=== PATIENT | female | born 1985 | race Two or more races ===

== ENCOUNTER 2025-06-24 13:01 | Emergency (ER) | payer OTHER ==
[~2025-06-24] VITALS: Ht 162.6 cm; Wt 72.9 kg
--- NOTE | 2025-06-24 13:17 | ED.PDOC ---
History of Present Illness HPI Comments 40-year-old female with no reported PMHx presents with a chief complaint of SOB, palpitations x 3 weeks with associated . Patient states that roughly 3 weeks ago she was noticing that she was becoming increasingly SOB and had gone to be medically evaluated. Patient mentions that her D-Dimer was evaluated and she underwent 2 CT scans with contrast, but the results were inconclusive. Denies any chest pain with this. No asymmetric leg swelling. No lower extremity edema. Pt does admit feeling somewhat anxious about her symptoms. Chief Complaint: Shortness of Breath Time Seen by MD: 13:15 Reviewed Notes: Medications, Allergies Allergies: Coded Allergies: NO KNOWN ALLERGIES (Unverified , 06/24/25) Information Source: Patient Mode of Arrival: Ambulatory Severity: Moderate Timing: Weeks Duration: Since onset Prehospital treatment: None Past Medical History PAST MEDICAL HISTORY: Denies Surgical History: Denies all surgeries DEVELOPMENTAL THERAPIST History: Denies all DEVELOPMENTAL THERAPIST Hx Family History Family History: Reviewed,noncontributory to illness Social History Smoker: Non-Smoker Alcohol: Denies ETOH Use Drugs: Denies Drug Use Lives In: Home Constitutional: denies: chills, diaphoresis, fatigue, fever, malaise, sweats, weakness, others EENTM: denies: blurred vision, double vision, ear bleeding, ear discharge, ear drainage, ear pain, ear ringing, eye pain, eye redness, hearing loss, mouth pain, mouth swelling, nasal discharge, nose bleeding, nose congestion, nose pain, photophobia, tearing, throat pain, throat swelling, voice changes, others Respiratory: reports: shortness of breath; denies: cough, hemoptysis, orthopnea, SOB at rest, SOB with excertion, stridor, wheezing, others Cardiovascular: denies: chest pain, dizzy spells, diaphoresis, Dyspnea on exertion, edema, irregular heart beat, left arm pain, lightheadedness, palpitations, PND, syncope, others Gastrointestinal: denies: abdomen distended, abdominal pain, blood streaked bowels, constipated, diarrhea, dysphagia, difficulty swallowing, hematemesis, melena, nausea, poor appetite, poor fluid intake, rectal bleeding, rectal pain, vomiting, others Genitourinary: denies: abnormal vagina bleeding, burning, dyspareunia, dysuria, flank pain, frequency, hematuria, incontinence, pain, , vagina discharge, urgency, others Neurological: denies: dizziness, fainting, headache, left sided numbness, left sided weakness, numbness, paresthesia, pre-existing deficit, right sided numbness, right sided weakness, seizure, speech problems, tingling, tremors, weakness, others Musculoskeletal: denies: back pain, gout, joint pain, joint swelling, muscle pain, muscle stiffness, neck pain, others Integumetry: denies: bruises, change in color, change in hair/nails, dryness, laceration, lesions, lumps, rash, wounds, others Allergic/Immunocompromised: denies: Difficulty Healing, Frequent Infections, Hives, Itching, others Hematologic/Lymphatic: denies: anemia, blood clots, easy bleeding, easy bruising, swollen glands, others Endocrine: denies: excessive hunger, excessive sweating, excessive thirst, excessive urination, flushing, intolerance to cold, intolerance to heat, unexplained weight gain, unexplained weight loss, others Psychiatric: denies: anxiety, bipolar disorder, depression, hopeless, panic disorder, schizophrenia, sleepless, suicidal, others All Other Systems: Reviewed and Negative Physical Exam General Appearance: No Apparent Distress, Normal HEENT: Normal ENT Inspection, Pharynx Normal, TMs Normal Neck: Full Range of Motion, Non-Tender, Normal, Normal Inspection Respiratory: Chest Non-Tender, Lungs Clear, No Accessory Muscle Use, No Respiratory Distress, Normal Breath Sounds Cardiovascular: No Edema, No JVD, No Murmur, No Gallop, Normal Peripheral Pulses, Regular Rate/Rhythm Breast Exam: Deferred Gastrointestinal: No Organomegaly, Non Tender, No Pulsatile Mass, Normal Bowel Sounds, Soft Genitalia: Deferred Pelvic: Deferred Rectal: Deferred Extremities: No calf tenderness, Normal capillary refill, Normal inspection, Normal range of motion, Non-tender, No pedal edema Musculoskeletal : Apperance: Normal Neurologic: Alert, dry cell and battery assembler II-XII nml as Tested, No Motor Deficits, Normal Affect, Normal Mood, No Sensory Deficits Cerebellar Function: Normal Reflexes: Normal Skin: Dry, Normal Color, Warm Lymphatic: No Adenopathy Was a procedure done? Was a procedure done?: No EKG EKG : Pulse Rate (adult): 97 [place]: Normal Cardiac Rhythm: NSR Block: None Hypertrophy: None ST: Normal Differential Dx Considerations may include: Arrhythmia vs Pulmonary Embolism vs Cardiomyopathy vs Anxiety X-Ray, Labs, Meds, VS Vital Signs Date Time Temp Pulse Resp B/P (MAP) Pulse Ox O2 Delivery O2 Flow Rate FiO2 06/24/25 15:08 97 06/24/25 13:04 97.9 88 17 132/87 97 97.9 Lab Test 06/24/25 13:31 Range/Units White Blood Count 10.0 4.4-10.8 10^3/uL Red Blood Count 4.79 4.0-5.20 10^6/uL Hemoglobin 12.5 12.2-16.2 g/dL Hematocrit 37.8 36.0-46.0 % Mean Corpuscular Volume 79.1 L 80.0-100.0 fL Mean Corpuscular Hemoglobin 26.1 L 28.0-32.0 pg Mean Corpuscular Hemoglobin Concent 33.1 32.0-36.0 g/dL Red Cell Distribution Width 14.4 H 11.8-14.3 % Platelet Count 308 140-450 10^3/uL Mean Platelet Volume 7.3 6.9-10.8 fL Neutrophils (%) (Auto) 75.4 37.0-80.0 % Lymphocytes (%) (Auto) 18.1 10.0-50.0 % Monocytes (%) (Auto) 5.0 0.0-12.0 % Eosinophils (%) (Auto) 0.9 0.0-7.0 % Basophils (%) (Auto) 0.6 0.0-2.0 % Neutrophils # (Auto) 7.6 1.6-8.6 10 ^3/uL Lymphocytes # (Auto) 1.8 0.4-5.4 10 ^3/uL Monocytes # (Auto) 0.5 0-1.3 10 ^3/uL Eosinophils # (Auto) 0.1 0-0.8 10 ^3/uL Basophils # (Auto) 0.1 0-0.2 10 ^3/uL Nucleated Red Blood Cells 0.0 % Sodium Level 136 136-145 mmol/L Potassium Level 3.8 3.5-5.1 mmol/L Chloride Level 105 98-107 mmol/L Carbon Dioxide Level 23 20-31 mmol/L Anion Gap 8 5-15 Blood Urea Nitrogen 8 L 9-23 mg/dL Creatinine 0.44 L 0.550-1.02 mg/dL Glomerular Filtration Rate Calc 127 >90 mL/min BUN/Creatinine Ratio 18.2 10.0-20.0 Serum Glucose 87 74-106 mg/dL Calcium Level 8.8 8.7-10.4 mg/dL Troponin I High Sensitivity < 3 L </=34 ng/L B-Type Natriuretic Peptide 6.25 0-100 pg/mL Time of 1ST Reevaluation: 13:44 Reevaluation 1ST: Unchanged Patient Education/Counseling: Diagnosis, Treatment, Need For Follow Up Family Education/Counseling: No Family Present SEPSIS Sepsis Screen Date sepsis recognized/suspect: Jun 24, 2025 Time Sepsis recognized/suspect: 1304 Recent Procedure: No On Antibiotic Therapy: No Respiratory Rate >20: No Heart Rate >90: No Temp<36 C (96.8 F) or >38.3 C: No SBP <90 or MAP <65 mmHG: No New Acute Mental Status Change: No Is the patient on CPAP, BIPAP,: No Physician Orders Electrocardigram (06/24/25 13:19) Vital Signs Date Time Temp Pulse Resp B/P (MAP) Pulse Ox O2 Delivery O2 Flow Rate FiO2 06/24/25 15:08 97 06/24/25 13:04 97.9 88 17 132/87 97 97.9 Laboratory Tests Test 06/24/25 13:31 White Blood Count 10.0 10^3/uL (4.4-10.8) Departure 1 Departure Time of Disposition: 15:42 (Pt presented for 3 weeks of intermittent palpitations and subjective SOB. Despite feeling SOB has normal work of breathing and normal oxygenation. Pt has clear lungs on examination, recent CTs with normal lung parenchyma, not concerning for pneumothorax. Has no lower extremity edema, normal BNP, no signs of fluid overload, not concerning for dilated cardiomyopathy. Despite having [address] scans recently patient's history does not seem concerning for PE. Pt with no specific chest pain, troponin today within normal limits, not concerning for acute cardiac process. Despite reporting palpitations has normal HR here with no evidence of a rrhythmia. Pt does admit to being anxious. Do suspect a component of anxiety contributing to today's symptoms. Pt agrees with this. Pt at this time appears to have no life threatening process. Stable for discharge for further outpatient workup and management.) Impression: Primary Impression: Shortness of breath Additional Impression: Palpitations with regular cardiac rhythm Disposition: HOME / SELF CARE / HOMELESS Condition: Stable Discharged With: Self Critical Care Note Critical Care Time?: No Stability Stability form required: No Heart Score Heart Score: Heart Score Response (Comments) Value History N/A 0 EKG N/A 0 Age N/A 0 Risk Factors N/A 0 Troponin N/A 0 Total 0 I personally scribed for FELICIA FOY MD ([email or web address]) on 06/24/25 at 13:21. Electronically submitted by Devon Alcala ([email or web address]). PATY FRANCISCO MD Jun 24, 2025 13:17 FELICIA FOY MD Jun 24, 2025 13:21
[2025-06-24 13:41] LABS: Hematocrit 37.8 % (36.0-46.0); Hemoglobin 12.5 g/dL (12.2-16.2); Mean Corpuscular Hemoglobin 26.1 pg (28.0-32.0); Mean Corpuscular Volume 79.1 fL (80.0-100.0); Nucleated Red Blood Cells % 0.0 %
[2025-06-24 13:48] LABS: Chloride 105 mmol/L (98-107); Potassium 3.8 mmol/L (3.5-5.1); Sodium 136 mmol/L (136-145)
[2025-06-24 13:49] LABS: Anion Gap 8 (5-15); Carbon Dioxide 23 mmol/L (20-31)
[2025-06-24 13:50] LABS: Calcium 8.8 mg/dL (8.7-10.4)
[2025-06-24 13:54] LABS: Glucose 87 mg/dL (74-106)
[2025-06-24 13:55] LABS: BUN/Creatinine Ratio 18.2 (10.0-20.0); Blood Urea Nitrogen 8 mg/dL (9-23)
[2025-06-24 16:04] VITALS: BP 107/71; PULSE 100; RESP 18; TEMP 98.7; O2SAT 98
--- NOTE | 2025-06-25 06:25 | ECG ---
[facility] Test Date: 2025-06-24 Test Time: 15:08:05 Pat Name: DONOVAN HAYES Department: [facility] ED Patient ID: [id number] Room: Gender: F Garment Worker: feng : 1985 Requested By: PATY FRANCISCO Order Number: [id number] Reading MD: Bob Chahal Measurements Intervals [place] Rate: 97 P: 67 IA: 134 QRS: 51 QRSD: 81 T: -5 QT: 334 QTc: 425 Interpretive Statements Sinus rhythm Low voltage, precordial leads Borderline T abnormalities, inferior leads Electronically Signed On 06-25-2025 11:20:20 PDT by Bob Chahal Please click the below link to view image of tracing.
== END 2025-06-24 16:06 | disposition home or self-care (01) ==
LOC: ER 13:01
DX: O26.892 Other specified pregnancy related conditions, second trimester (principal); Z3A.23 23 weeks gestation of pregnancy
CPT/HCPCS: 36415; 80048; 83880; 84484; 85025; 93005